=== PATIENT | female | born 1960 | race American Indian/Alaskan Native ===

== ENCOUNTER 2019-04-30 14:58 | Emergency (ER) | payer OTHER ==
[~2019-04-30] VITALS: Ht 162.6 cm; Wt 77.0 kg
[2019-04-30] MEDS ORDERED: ondansetron 4mg rapidly disintigrating tab PO ONE (15:45)
[2019-04-30] MEDS ORDERED: HYDROcodone/acetaminophen 10/325mg tab PO ONE (15:45)
[2019-04-30] MEDS ORDERED: ONDA4TAB6 PO (16:09)
[2019-04-30 16:25] VITALS: BP 155/98
== END 2019-04-30 16:30 | disposition home or self-care (01) ==
LOC: ER 14:59
DX: S06.0X0A Concussion without loss of consciousness, initial encounter (principal); S60.512A Abrasion of left hand, initial encounter; S60.511A Abrasion of right hand, initial encounter; E11.9 Type 2 diabetes mellitus without complications; W01.0XXA Fall on same level from slipping, tripping and stumbling without subsequent striking against object, initial encounter; Y93.89 Activity, other specified; Y92.481 Parking lot as the place of occurrence of the external cause; Y99.9 Unspecified external cause status
CPT/HCPCS: 70450; 99284